=== PATIENT | male | born 1960 | race Caucasian/White ===

== ENCOUNTER 2024-10-08 07:13 | Emergency (ER) | payer BC, SELFPAY ==
[2024-10-08] VITALS (13 sets, daily range): BP systolic 89–125; BP diastolic 63–98; PULSE 45–138; RESP 16–20; TEMP 36.9; O2SAT 92–100; BMI 35.9
--- NOTE | 2024-10-08 07:24 | EKG12_ITS ---
Test Reason : Blood Pressure : */* mmHG Vent. Rate : 68 BPM Atrial Rate : 68 BPM P-R Int : 238 ms QRS Dur : 142 ms QT Int : 414 ms P-R-T Axes : 43 -22 6 degrees QTcB Int : 440 ms Sinus rhythm with 1st degree A-V block Right bundle branch block Abnormal ECG Confirmed by MORA NEVAREZ, KASHIF ([id number]), primer expeditor and drier KENN REYNA ([id number]) on 10/09/2024 8:08:36 AM Referred By: DEBI Confirmed By: KASHIF VELAZCO MD
--- NOTE | 2024-10-08 07:24 | RAD_ITS ---
EXAM: XR CHEST, 1 VIEW CLINICAL INDICATION: afib TECHNIQUE: Frontal view of the chest. COMPARISON: No relevant prior studies available. FINDINGS: LUNGS AND PLEURAL SPACES: Unremarkable. No consolidation or edema. No pneumothorax. No effusion. HEART: Unremarkable. Cardiac silhouette not enlarged. MEDIASTINUM: Central airways and mediastinal contour are unremarkable. BONES/JOINTS: Unremarkable. No acute fracture. SOFT TISSUES: Unremarkable. RAD/Chest 1 View (Portable) IMPRESSION: No radiographic evidence of acute cardiopulmonary disease. Electronically Signed: Jd Orlando MD at 7:54 EST ,
--- NOTE | 2024-10-08 07:27 | EX.ED.DYSGE1 ---
HPI History of Present Illness Chief Complaint: Palpitations Informant: patient and spouse/S.O. Narrative Narrative: Awakened at 5 AM to use the restroom in his camper felt his heart race. Mild lightheaded symptoms. Atrial fibrillation over 10 years ago was on amiodarone, at that time felt it was caffeine induced, he stopped it and went back to normal. He has not had anything since. He is off medications for atrial fibrillation. He takes blood pressure medicines thyroid medicines and cholesterol medicines. They on a cross-country road trip from [place] on day 2. They were sleeping a camper when he felt symptoms. No recent cough. However today felt like he needed cough due to the palpitations. No recent nausea or vomiting. No urinary symptoms. Prior similar symptoms: Yes PFSH PFSH Home Medications ?Medication ?Instructions ?Recorded ?Last Taken ?Type apixaban 5 mg tablet (Eliquis) 5 mg PO BID #60 tabs 10/08/24 Unknown Rx atorvastatin 10 mg tablet 10 mg PO QHS 10/08/24 Unknown History irbesartan 75 mg tablet (Avapro) 75 mg PO DAILY 10/08/24 Unknown History levocetirizine 5 mg tablet 5 mg PO DAILY 10/08/24 Unknown History melatonin 10 mg capsule 10 mg PO QHS 10/08/24 Unknown History metoprolol succinate 25 mg 25 mg PO DAILY #30 tabs 10/08/24 Unknown Rx tablet,extended release 24 hr Allergy/AdvReac Type Severity Reaction Status Date / Time No Known Allergies Allergy Verified 10/08/24 07:14 Social History Smoking Status: Never smoker ROS ROS ED Constitutional Constitutional ED: Denies chills, fever(s) or sweats Eyes Eyes: Denies change in vision ENT ENT ED: Denies dysphagia or sore throat Cardiovascular Cardiovascular: Reports palpitations and racing heartbeat; Denies chest pain or leg edema Respiratory/Chest Respiratory/Chest: Denies cough, dyspnea or dyspnea on exertion Gastrointestinal Gastrointestinal: Denies abdominal pain, diarrhea, nausea or vomiting Genitourinary Genitourinary ED: Denies dysuria, hematuria or urinary frequency Musculoskeletal Musculoskeletal: Denies back pain, extremity pain or neck pain Integumentary Denies rash or wounds Neurologic Neurologic: Denies headache(s), paresthesias or weakness EXAM Physical Exam Const Vital Signs: 10/08/24 07:15 10/08/24 07:30 10/08/24 07:59 Temperature 98.4 F Temperature Source Temporal Pulse Rate 45 L 135 H 134 H Pulse Rate [1] Pulse Rate [2] Respiratory Rate 18 Respiratory Rate [1] Respiratory Rate [2] Blood Pressure 117/73 125/98 H 107/84 H Blood Pressure [1] Blood Pressure Mean 87 107 91 Pulse Ox 100 Oxygen Delivery Method Room Air Oxygen Delivery Method [1] Oxygen Delivery Method [2] Oxygen Flow Rate (L/min) Oxygen Flow Rate (L/min) [1] Oxygen Flow Rate (L/min) [2] EtCo2 (Normal 35-45 , high quality CPR 10-20 & ROSC>/=40mmHg EtCo2 (Normal 35-45 , high quality CPR 10-20 & ROSC>/=40mmHg [1] EtCo2 (Normal 35-45 , high quality CPR 10-20 & ROSC>/=40mmHg [2] 10/08/24 08:14 10/08/24 08:17 10/08/24 08:24 Temperature Temperature Source Pulse Rate 131 H 130 H Pulse Rate [1] Pulse Rate [2] Respiratory Rate 20 H Respiratory Rate [1] Respiratory Rate [2] Blood Pressure 97/63 97/63 Blood Pressure [1] Blood Pressure Mean 74 Pulse Ox 99 Oxygen Delivery Method Nasal Cannula Oxygen Delivery Method [1] Oxygen Delivery Method [2] Oxygen Flow Rate (L/min) 2 Oxygen Flow Rate (L/min) [1] Oxygen Flow Rate (L/min) [2] EtCo2 (Normal 35-45 , high quality CPR 10-20 & ROSC>/=40mmHg 41 EtCo2 (Normal 35-45 , high quality CPR 10-20 & ROSC>/=40mmHg [1] EtCo2 (Normal 35-45 , high quality CPR 10-20 & ROSC>/=40mmHg [2] 10/08/24 08:25 10/08/24 08:30 10/08/24 08:33 Temperature Temperature Source Pulse Rate Pulse Rate [1] 138 H Pulse Rate [2] 91 Respiratory Rate Respiratory Rate [1] 20 H Respiratory Rate [2] 20 H Blood Pressure Blood Pressure [1] 116/86 H Blood Pressure Mean Pulse Ox Oxygen Delivery Method Nasal Cannula Oxygen Delivery Method [1] Nasal Cannula Oxygen Delivery Method [2] Nasal Cannula Oxygen Flow Rate (L/min) 3 Oxygen Flow Rate (L/min) [1] 2 Oxygen Flow Rate (L/min) [2] 4 EtCo2 (Normal 35-45 , high quality CPR 10-20 & ROSC>/=40mmHg 38 39 EtCo2 (Normal 35-45 , high quality CPR 10-20 & ROSC>/=40mmHg [1] 37 EtCo2 (Normal 35-45 , high quality CPR 10-20 & ROSC>/=40mmHg [2] 37 10/08/24 08:35 10/08/24 08:38 10/08/24 08:41 Temperature Temperature Source Pulse Rate Pulse Rate [1] Pulse Rate [2] Respiratory Rate Respiratory Rate [1] Respiratory Rate [2] Blood Pressure Blood Pressure [1] Blood Pressure Mean Pulse Ox Oxygen Delivery Method Nasal Cannula Oxygen Delivery Method [1] Oxygen Delivery Method [2] Oxygen Flow Rate (L/min) 2 Oxygen Flow Rate (L/min) [1] Oxygen Flow Rate (L/min) [2] EtCo2 (Normal 35-45 , high quality CPR 10-20 & ROSC>/=40mmHg 37 32 37 EtCo2 (Normal 35-45 , high quality CPR 10-20 & ROSC>/=40mmHg [1] EtCo2 (Normal 35-45 , high quality CPR 10-20 & ROSC>/=40mmHg [2] 10/08/24 09:00 10/08/24 10:00 Temperature Temperature Source Pulse Rate 67 68 Pulse Rate [1] Pulse Rate [2] Respiratory Rate 16 Respiratory Rate [1] Respiratory Rate [2] Blood Pressure 102/74 122/93 H Blood Pressure [1] Blood Pressure Mean 83 102 Pulse Ox 98 Oxygen Delivery Method Room Air Oxygen Delivery Method [1] Oxygen Delivery Method [2] Oxygen Flow Rate (L/min) Oxygen Flow Rate (L/min) [1] Oxygen Flow Rate (L/min) [2] EtCo2 (Normal 35-45 , high quality CPR 10-20 & ROSC>/=40mmHg EtCo2 (Normal 35-45 , high quality CPR 10-20 & ROSC>/=40mmHg [1] EtCo2 (Normal 35-45 , high quality CPR 10-20 & ROSC>/=40mmHg [2] Positive well nourished and well developed General Appearance ED: well developed and NAD HEENT Reports moist mucous membranes normocephalic and atraumatic Eyes EOMs intact bilaterally and conjunctivae normal General Eye ED: Yes normal appearance of both eyes Neck no lymphadenopathy and supple General: Negative for tenderness Chest Wall Chest: Negative for tenderness Resp normal respiratory effort and normal air movement Effort and Inspection: symmetric chest movement; Negative for respiratory distress Cardio no murmurs Rate: tachycardic Rhythm: abnormal rhythm Peripheral Pulses: pulses 2+ throughout GI normal to inspection, nondistended, normoactive bowel sounds and non-tender Palpation: Negative for guarding or rebound tenderness present Back/Spine no CVA tenderness and no thoracic nor lumbar tenderness Extremity normal to inspection General Extremety ED: Negative for edema or tenderness General Extremity: Negative for edema Neuro oriented x3 and no sensory deficits noted Sensorium / Orientation: awake and alert Skin no rashes or lesions noted and no wounds MDM MDM MDM Narrative Medical decision making narrative: Interventions / MDM: Differential diagnosis: Atrial fibrillation with RVR, palpitations Diagnosis considered but do not suspect: N/A My EKG interpretation: EKG #1: A-fib rate of 154, no ST changes or T wave changes. Post direct-current cardioversion EKG at 0832: Sinus rhythm rate of 68, first-degree AV block. Isolated T wave inversion lead III. Nonspecific. Imaging independently reviewed and interpreted by myself: 1 view chest x-ray: No acute process also read by radiology. External documents reviewed: N/A Test considered but not ordered:N/A ED course: Heart rate irregular tachycardic. On the monitor heart rate 130s to 140s concerning for atrial fibrillation. EKG will be obtained. Labs will be checked. Chest x-ray. IV Lopressor will be started. 0805: After 2 IV Lopressor doses heart rate transient 120s mostly standing 130s systolic blood pressure 90. Discussed with patient symptom onset known around 5 AM 3 hours ago. Discussed direct-current cardioversion with the patient which can help with symptoms. He agrees. Consent will be obtained for plan direct-current cardioversion. Labs returning normal thyroid potassium 2.9 magnesium 2.0. Hemoglobin 16.4. Will dose with potassium after sedation. 0825: ASA 3, Mallampati 3. Written consent obtained. Timeout performed. alarm security or surveillance monitor O2 capnography. Fluids were hung up. Patient given 40 mg propofol, sedation achieved. Direct-current cardioversion 827 with 150 J synchronized. Normal sinus rhythm on the monitor. Will obtain EKG. Brief hypoxia 87% oxygen increased to 4 L with improvement. 0925: Currently remaining sinus rhythm feels back to normal. Blood pressure 102/74. I discussed with cardiology Dr. Ritter, will start Eliquis, for rate control will do metoprolol 25 extended release. Will stop his chlorthalidone, he will continue his potassium replacement for another week. He will follow-up with a primary care doctor in [place] as he will be there for until January. Discussed this with patient and spouse who understands and agrees with plan. I did discuss avoiding NSAIDs as he is on Eliquis. He will use Tylenol or acetaminophen as needed. Re-evaluation: stable Disposition discussed with patient/family/significant other: Patient and significant other Case discussed with consulting clinician: Cardiology This note was generated with [employer] dictation software. It may contain incorrect words, spelling, and punctuation that were not noted in checking the note before signing. Lab Data Attestation: I reviewed the patient's lab results. Labs: Laboratory Results - last 24 hr 10/08/24 07:25 WBC 9.1 RBC 5.35 Hgb 16.4 Hct 48.5 MCV 90.7 MCH 30.7 MCHC 33.8 RDW Std Deviation 42.7 RDW Coeff of Ofe 13.0 Plt Count 320 MPV 9.9 Immature Gran % (Auto) 0.200 Neut % (Auto) 58.1 Lymph % (Auto) 30.9 Nye % (Auto) 8.8 Eos % (Auto) 1.4 Baso % (Auto) 0.6 Absolute Neuts (auto) 5.3 Absolute Lymphs (auto) 2.80 Nucleated RBC % 0 PT 14.0 INR 1.1 APTT 27.3 Sodium 138 Potassium 2.9 L Chloride 98 Carbon Dioxide 32.0 Anion Gap 8 BUN 17 Creatinine 1.07 Estim Creat Clear Calc 87.96 Est GFR (MDRD) Af Amer 89 Est GFR (MDRD) Non-Af 74 BUN/Creatinine Ratio 15.9 Glucose 120 H Calcium 9.3 Magnesium 2.0 TSH 3.430 Radiography Diagnostic Testing: Clinical Impression(s) from Imaging Studies Chest X-Ray 10/08/24 07:24 IMPRESSION: No radiographic evidence of acute cardiopulmonary disease. Electronically Signed: Jd Orlando MD at 7:54 EST , Procedures Procedural Sedation 1 (Initial Baseline): Consent Signed: Yes Any Problems With Anesthesia: No You/Your family experience fever (hyperthermia) w/anesthesia: Unknown Sedation medication: Propofol Dose: 40 Route: IV Maliampati Score: Class III ASA Classification: III Discharge Plan Triage Chief Complaint: Palpitations ED Provider: Abhay Magdaleno Dx/Rx/DC Orders Clinical Impression: Atrial fibrillation, currently in sinus rhythm, Encounter for cardioversion procedure, Hypokalemia Instructions: Cardioversion Dc, Hypokalemia Dc, ED AFIB Prescriptions: New Eliquis 5 mg tablet 5 mg PO BID Qty: 60 0RF Rx Instructions: 10 mg twice a day for the first week. Then 5 mg twice a day. metoprolol succinate 25 mg tablet extended release 24 hr 25 mg PO DAILY Qty: 30 0RF No Action levocetirizine 5 mg tablet 5 mg PO DAILY melatonin 10 mg capsule 10 mg PO QHS irbesartan [Avapro] 75 mg tablet 75 mg PO DAILY atorvastatin 10 mg tablet 10 mg PO QHS Primary Care Provider: FARZANA SANTIAGO Referrals: FARZANA SANTIAGO [Other] Activity Restrictions/Additional Instructions: Stop your chlorthalidone. Your potassium 2.9 today. Magnesium normal at 2.0. Continue your potassium replacement for another week. Take metoprolol as prescribed next dose tomorrow morning. Take Eliquis as prescribed next dose this evening. You will need to follow-up with a primary care doctor in [place] to continue your medications and reevaluation and to recheck your labs. You were cardioverted in the ED with sedation. No driving for the next 24 hours. Print Language: Romansh Disposition Disposition: Home, Self Care Discharge Date/Time: 10/08/24 10:07
[2024-10-08] MEDS: Metoprolol Tartrate 5 MG/5 ML Vial IV ×2 (07:34→07:54)
[2024-10-08 07:36] LABS: Absolute Neutrophil Count 5.3 X10^3/uL (2.0-7.7); Basophil# 0.05 X10^3/uL; Basophil% 0.6 % (0-1); Eosinophil# 0.13 X10^3/uL; Eosinophils% 1.4 % (0-5); Hematocrit 48.5 % (40-54); Hemoglobin 16.4 g/dL (13.0-16.5); Lymphocyte % 30.9 % (19-41); Mean Corp Hgb Conc 33.8 g/dL (32-36); Mean Corpuscular Hgb 30.7 pg (27.0-32.0); Mean Corpuscular Volume 90.7 fL (80-94); Mean Platelet Vol. 9.9 fl (6.2-12.0); Monocyte% 8.8 % (0-10); NRBC Flagged by Analyzer 0 % (0-5); Neutrophil # 5.26 X10^3/uL (2.7-7.7); Neutrophil % 58.1 % (47-70); Platelet Count 320 K/mm3 (150-450); RBC Distribution Width SD 42.7 fl (35.1-43.9); Red Blood Count 5.35 M/mm3 (4.6-6.2); White Blood Count 9.1 K/mm3 (4.4-11.0)
[2024-10-08 07:46] LABS: International Normalized Ratio 1.1
[2024-10-08 07:47] LABS: Partial Thromboplast Time 27.3 Seconds (24.1-36.2)
[2024-10-08 07:59] LABS: Anion Gap 8 (5-15); BUN 17 mg/dL (7-18); BUN/Creat Ratio 15.9 RATIO (10-20); Calcium,Total 9.3 mg/dL (8.5-10.1); Chloride 98 mmol/L (98-107); Creatinine, Serum 1.07 mg/dL (0.70-1.30); EST Glomerular Filtration Rate 74 mL/min (>60); Est Glom Filt Rate - Afr Amer 89 mL/min (>60); Estimated Creatinine Clearance 87.96 ml/min; Glucose 120 mg/dL (74-106); Potassium 2.9 mmol/L (3.5-5.1); Sodium Level 138 mmol/L (136-145)
[2024-10-08] MEDS: 0.9% Normal Saline (1000mL) 1,000 ML 999 ML IV (08:20)
--- NOTE | 2024-10-08 08:32 | EKG12_ITS ---
Test Reason : PALPITATIONS Blood Pressure : */* mmHG Vent. Rate : 154 BPM Atrial Rate : * BPM P-R Int : * ms QRS Dur : 114 ms QT Int : 306 ms P-R-T Axes : * 0 9 degrees QTcB Int : 490 ms Critical Test Result: High HR Atrial fibrillation with rapid ventricular response Right bundle branch block Abnormal ECG Confirmed by MORA NEVAREZ, KASHIF ([id number]), editor house organ SURYA MULLEN ([id number]) on 10/09/2024 8:13:59 AM Referred By: DEBI Confirmed By: KASHIF VELAZCO MD
[2024-10-08] MEDS: Propofol 200 MG/20 ML Vial IV BOLUS (09:06)
[2024-10-08] MEDS: Potassium Chloride Oral Tablet 20 MEQ 40 MEQ PO (09:06)
[2024-10-08] MEDS: APIXABAN 5 MG TABLET PO (10:02)
== END 2024-10-08 10:07 | disposition home or self-care (01) ==
PROVIDERS: Emergency Provider Emergency Medicine; Visit Provider Emergency Medicine
DX: I48.91 Unspecified atrial fibrillation (principal); E87.6 Hypokalemia; I10 Essential (primary) hypertension; Z79.899 Other long term (current) drug therapy
CPT/HCPCS: 71045; 80048; 83735; 84443; 85025; 85610; 85730; 93005; 96361; 96374; 96376; 99284; A4216